=== PATIENT | female | born 1965 | race Caucasian/White ===

== ENCOUNTER 2016-07-11 16:58 | Emergency (ER) | payer SELFPAY ==
[~2016-07-11] VITALS: Ht 165.1 cm; Wt 153.4 kg
[2016-07-11 16:59] VITALS: BP 153/90
[2016-07-11] MEDS ORDERED: DABI150C PO (17:18)
[2016-07-11] MEDS ORDERED: LEVO150T5 PO (17:18)
[2016-07-11] MEDS ORDERED: DILT60TA27 PO (17:18)
[2016-07-11] MEDS ORDERED: HYDROcodone/APAP 5/325 TABLET ONE (17:40)
[2016-07-11] MEDS ORDERED: HYDROcodone/APAP 5/325 TABLET PO PRN (18:00)
== END 2016-07-11 18:45 | disposition home or self-care (01) ==
LOC: ED 18:25
DX: G89.11 Acute pain due to trauma (principal); M25.511 Pain in right shoulder; I10 Essential (primary) hypertension; V49.88XA Car occupant (driver) (passenger) injured in other specified transport accidents, initial encounter; Y93.89 Activity, other specified; Y99.8 Other external cause status; Y92.89 Other specified places as the place of occurrence of the external cause